=== PATIENT | female | born 1980 | race Caucasian/White ===

== ENCOUNTER → 2022-09-27 | Outpatient (CLI) | payer OTHER | LOC: M WHC 15:15 | PROVIDERS: ATTEND Family Medicine | DX: Z12.31 Encounter for screening mammogram for malignant neoplasm of breast (principal); R92.8 Other abnormal and inconclusive findings on diagnostic imaging of breast ==

== ENCOUNTER → 2022-10-13 | Outpatient (CLI) | payer OTHER | LOC: M WHC 14:43 | PROVIDERS: ATTEND Family Medicine | DX: Z12.31 Encounter for screening mammogram for malignant neoplasm of breast (principal) | CPT/HCPCS: 76642; 77066; G0279 ==

== ENCOUNTER → 2023-03-02 | Outpatient (CLI) | payer OTHER | LOC: M CARPUL 08:01 | PROVIDERS: ATTEND Family Medicine | DX: R05.3 Chronic cough (principal) ==

== ENCOUNTER → 2023-11-10 | Outpatient (CLI) | payer OTHER | LOC: M WHC 14:40 | PROVIDERS: ATTEND Obstetrics & Gynecology | DX: Z12.31 Encounter for screening mammogram for malignant neoplasm of breast (principal); R92.8 Other abnormal and inconclusive findings on diagnostic imaging of breast; R92.333 Mammographic heterogeneous density, bilateral breasts ==

== ENCOUNTER → 2023-11-28 | Outpatient (CLI) | payer OTHER ==
[~2023-11-28] MED LIST: BUPR-597 PO; BUPR150T12 PO; MESA1.2T PO; PROP20TA72 PO; THERTAB52 PO; TRAN650T PO
== END ==
LOC: M WHC 13:44
PROVIDERS: ATTEND Obstetrics & Gynecology
DX: R92.333 Mammographic heterogeneous density, bilateral breasts (principal)
CPT/HCPCS: 77065; G0279

== ENCOUNTER 2023-12-22 05:55 | Day surgery (SDC) | payer OTHER ==
[~2023-12-22] VITALS: Ht 162.6 cm; Wt 64.5 kg
[2023-12-22] MEDS ORDERED: LR 1,000 ML IV SCH (06:45)
[2023-12-22] MEDS ORDERED: ACETAMINOPHEN 1000MG 100ML IV BAG As Ordered ONE (07:07)
[2023-12-22] MEDS ORDERED: dexmedeTOMIDine (4MCG/ML)200MCG/50ML BTL (PRECEDEX) As Ordered ONE (07:09)
[2023-12-22] MEDS ORDERED: propofoL 200 MG/20 ML VIAL As Ordered ONE (07:13)
[2023-12-22] MEDS ORDERED: LIDOCAINE 2% 100MG/5ML SDV (FOR ANES.) As Ordered ONE (07:15)
[2023-12-22] MEDS ORDERED: ONDANSETRON 4MG 2ML VIAL As Ordered ONE (07:16)
[2023-12-22] MEDS ORDERED: KETOROLAC 60MG 2ML VIAL As Ordered ONE (07:16)
[2023-12-22] MEDS ORDERED: fentaNYL 100 MCG/2 ML INJECTION As Ordered ONE (07:17)
[2023-12-22] MEDS ORDERED: MIDAZOLAM INJ 2MG/2ML VIAL As Ordered ONE (07:17)
[2023-12-22] MEDS: ceFAZolin SOD 2 GM in IV 1 EA IV ONE (07:30)
[2023-12-22] MEDS: LIDOCAINE 1% SDV 30ML VIAL As Ordered ONE (07:41)
[2023-12-22] MEDS ORDERED: ePHEDrine SULFATE 25 MG/5 ML(5MG/ML) SYRINGE As Ordered ONE (07:58)
[2023-12-22 09:35] VITALS: BP 110/78; TEMP 98.6; O2SAT 100
== END 2023-12-22 09:40 | disposition home or self-care (01) ==
LOC: M SDC 05:55
PROVIDERS: ATTEND Podiatrist Foot & Ankle Surgery
DX: M21.612 Bunion of left foot (principal); K51.90 Ulcerative colitis, unspecified, without complications; J45.909 Unspecified asthma, uncomplicated; F41.9 Anxiety disorder, unspecified; F32.A Depression, unspecified; Z79.899 Other long term (current) drug therapy; Z88.8 Allergy status to other drugs, medicaments and biological substances
CPT/HCPCS: 28296; 28306; 81025; C1713; J0131; J0665; J0690; J1100; J1885; J2250; J2405; J3010

== ENCOUNTER 2024-01-25 08:34 | Day surgery (SDC) | payer OTHER ==
[~2024-01-25] VITALS: Ht 162.6 cm; Wt 60.7 kg
[~2024-01-25 08:34] MED LIST changes: +NS 250 ML IV ONE
[2024-01-25] MEDS ORDERED: propofoL 200 MG/20 ML VIAL As Ordered ONE (10:02)
[2024-01-25] MEDS ORDERED: LIDOCAINE 2% 100MG/5ML SDV (FOR ANES.) As Ordered ONE (10:02)
[2024-01-25 10:30] VITALS: TEMP 97.5
[2024-01-25 10:55] VITALS: BP 114/75; O2SAT 99
== END 2024-01-25 10:55 | disposition home or self-care (01) ==
LOC: M OPP 08:34
PROVIDERS: ATTEND Internal Medicine Gastroenterology
DX: K51.20 Ulcerative (chronic) proctitis without complications (principal); K64.0 First degree hemorrhoids; J45.909 Unspecified asthma, uncomplicated; Z79.899 Other long term (current) drug therapy; Z88.8 Allergy status to other drugs, medicaments and biological substances

== ENCOUNTER 2024-04-04 07:09 | Day surgery (SDC) | payer OTHER ==
[~2024-04-04] VITALS: Ht 162.6 cm; Wt 59.9 kg
[~2024-04-04 07:09] MED LIST changes: -NS 250 ML IV ONE
[2024-04-04] MEDS ORDERED: LR 1,000 ML IV SCH (07:25)
[2024-04-04] MEDS ORDERED: LIDOCAINE 2% 100MG/5ML SDV (FOR ANES.) As Ordered ONE (07:45)
[2024-04-04] MEDS ORDERED: ONDANSETRON 4MG 2ML VIAL As Ordered ONE (07:45)
[2024-04-04] MEDS ORDERED: propofoL 200 MG/20 ML VIAL As Ordered ONE (07:45)
[2024-04-04] MEDS ORDERED: KETOROLAC 60MG 2ML VIAL As Ordered ONE (07:45)
[2024-04-04] MEDS ORDERED: MIDAZOLAM INJ 2MG/2ML VIAL As Ordered ONE (07:53)
[2024-04-04] MEDS ORDERED: fentaNYL 100 MCG/2 ML INJECTION As Ordered ONE (07:53)
[2024-04-04] MEDS: ceFAZolin SOD 2 GM in IV 1 EA IV ONE (08:46)
[2024-04-04] MEDS ORDERED: ACETAMINOPHEN 1000MG/100ML IV BAG As Ordered ONE (08:49)
[2024-04-04] MEDS: LIDOCAINE 1% MDV 20ML VIAL As Ordered ONE (08:51)
[2024-04-04 10:31] VITALS: BP 109/71; TEMP 97; O2SAT 98
== END 2024-04-04 10:31 | disposition home or self-care (01) ==
LOC: M SDC 07:09
PROVIDERS: ATTEND Podiatrist Foot & Ankle Surgery
DX: M21.611 Bunion of right foot (principal); M20.11 Hallux valgus (acquired), right foot; Z88.8 Allergy status to other drugs, medicaments and biological substances; K51.90 Ulcerative colitis, unspecified, without complications; F41.9 Anxiety disorder, unspecified; F32.A Depression, unspecified; J45.909 Unspecified asthma, uncomplicated; Z79.899 Other long term (current) drug therapy
CPT/HCPCS: 28306; C1713; J0131; J0665; J0690; J1100; J1885; J2250; J2405; J3010